=== PATIENT | male | born 1965 | race Caucasian/White ===

== ENCOUNTER 2017-05-24 17:19 | Emergency (ER) | payer BC ==
[~2017-05-24] VITALS: Ht 180.3 cm; Wt 68.0 kg
[2017-05-24] MEDS ORDERED: NAPROSYN500 MG PO (17:28)
[2017-05-24] MEDS ORDERED: CHLORZOXAZONE500 M2 PO (17:28)
[2017-05-24 18:10] VITALS: BP 124/83
== END 2017-05-24 18:40 | disposition home or self-care (01) ==
LOC: ED 17:19
DX: M54.5 Low back pain (principal); R03.0 Elevated blood-pressure reading, without diagnosis of hypertension

== ENCOUNTER → 2018-06-19 | Outpatient (CLI) | payer BC ==
[~2018-06-19] MED LIST: CHLORZOXAZONE500 M2 PO; NAPROSYN500 MG PO
[2018-06-19 13:22] LABS: CREATININE 1.12 mg/dL (0.70-1.30)
== END | disposition home or self-care (01) ==
LOC: LAB 12:38 → CT 13:00
PROVIDERS: Radiology Diagnostic Radiology
DX: R31.9 Hematuria, unspecified (principal)

== ENCOUNTER → 2024-05-12 | Outpatient (CLI) | payer BC ==
[2024-05-12 13:44] LABS: BASO # 0.1 10*3/uL (0.0-0.1); BASO % 0.8 % (0.0-1.0); EOS # 0.3 10*3/uL (0.0-0.4); EOS % 2.8 % (1.0-4.0); HEMATOCRIT 46.3 % (42.0-52.0); MEAN CELL VOLUME 94.3 fl (80.0-94.0); MEAN CORPUSCULAR HGB 30.3 pg (27.0-31.0); MEAN CORPUSCULAR HGB CONC 32.2 g/dl (33.0-37.0); MONO # 0.6 10*3/uL (0.1-1.0); MONO % 5.8 % (3.0-9.0); NEUT # 4.9 10*3/uL (2.3-7.9); NEUT % 50.9 % (47.0-73.0); PLATELET COUNT AUTOMATED 236 10*3/uL (130-400); RED BLOOD COUNT 4.91 10*6/uL (4.50-5.90); RED CELL DISTRI WIDTH 13.1 % (0-14.5); RETICULOCYTE % 1.12 % (0.50-2.50); WHITE BLOOD COUNT 9.6 10*3/uL (4.8-10.8)
[2024-05-12 14:10] LABS: VITAMIN D, 25-HYDROXY 61.2 ng/mL (30-100)
[2024-05-12 14:17] LABS: ALKALINE PHOSPHATASE 124 U/L (46-116); BUN 18 mg/dl (9-23); CHLORIDE 106 mmol/L (98-107); CHOLESTEROL 137 mg/dL (<200); GAMMA GLUTAMYL TRANSPEPTIDASE 20 U/L (0-73); LDL CHOLESTEROL 74 mg/dL (9-159); SGPT/ALT 15 U/L (5-49); TOTAL PROTEIN 7.1 gm/dL (6.0-8.0); TRIGLYCERIDES 112 mg/dl (<150)
== END | disposition home or self-care (01) ==
LOC: LAB 13:11
PROVIDERS: ATTEND Family Medicine
DX: R06.02 Shortness of breath (principal)